=== PATIENT | female | born 1965 | race Two or more races ===

== ENCOUNTER → 2019-08-08 | Emergency (ER) | payer OTHER ==
[~2019-08-08] VITALS: Ht 170.2 cm; Wt 93.0 kg
[~2019-08-08] MED LIST: AIRBORNE EFFER1 EACH PO; INTESTINEX680 M1 PO; LEVSIN/SL0.125 MG SL; MUCINEX DM ER1 EAC1 PO; PEPCID AC20 MG PO; TESSALON PERLE100 M1 PO
== END | disposition home or self-care (01) ==
LOC: ER 01:11
DX: J06.9 Acute upper respiratory infection, unspecified (principal)

== ENCOUNTER 2023-02-05 17:30 | Emergency (ER) | payer OTHER ==
[~2023-02-05] VITALS: Ht 170.2 cm; Wt 54.0 kg
[2023-02-05] MEDS ORDERED: TOPROL XL50 M1 PO (17:38)
[2023-02-05 19:36] LABS: HEMATOCRIT 41.1 % (36.0-45.00); HEMOGLOBIN 14.1 g/dL (12.0-15.00); MEAN CELL VOLUME 88.9 fL (80.00-100.00); MEAN CORPUSCULAR HEMOGLOBIN 30.4 pg (27.00-32.0); MEAN CORPUSCULAR HGB CONC 34.3 g/dl (32.0-36.0); PLATELET COUNT 324 K/uL (150-450); RED BLOOD COUNT 4.62 M/uL (4.00-6.00); RED CELL DISTRIBUTION WIDTH 14.5 % (11.5-14.5)
[2023-02-05 19:49] LABS: PH,URINE 5.5 (5.0-8.0); URINE APPEARANCE Clear; URINE BILIRRUBIN Negative (NEGATIVE); URINE BLOOD Moderate; URINE COLOR Yellow; URINE GLUCOSE Negative (NEGATIVE); URINE LEUKOCYTE Negative; URINE NITRATE Negative; URINE PROTEIN Negative (NEGATIVE); URINE UROBILINOGEN 0.2 E.U./dl
[2023-02-05 19:50] LABS: URINE BACTERIA 274.6 uL (0.0-1933); URINE EPITHELIAL CELLS 13.5 uL (0.0-38.8); URINE RBC 49.1 uL (0.0-20.8); URINE WBC 7.5 uL (0.0-23.2)
[2023-02-05 20:05] LABS: CALCIUM 9.3 mg/dL (8.5-10.1); CREATININE SERUM 1.13 mg/dL (0.55-1.02); GFR 49.81; POTASSIUM 4.12 mEq/L (3.5-5.1)
== END 2023-02-05 21:16 | disposition home or self-care (01) ==
LOC: ER 17:30
PROVIDERS: General Practice
DX: R00.2 Palpitations (principal)

== ENCOUNTER 2023-04-18 16:47 | Emergency (ER) | payer OTHER ==
[~2023-04-18] VITALS: Ht 170.2 cm; Wt 93.0 kg
[~2023-04-18 16:47] MED LIST changes: +TOPROL XL50 M1 PO
[2023-04-18] MEDS ORDERED: OMEPRAZOLE MAGN20 MG (17:25)
[2023-04-18] MEDS ORDERED: PEPCID AC10 MG (17:26)
[2023-04-18 19:23] LABS: HEMOGLOBIN 13.6 g/dL (12.0-15.00); MEAN CELL VOLUME 88.1 fL (80.00-100.00); MEAN CORPUSCULAR HGB CONC 34.1 g/dl (32.0-36.0); PLATELET COUNT 334 K/uL (150-450); RED BLOOD COUNT 4.54 M/uL (4.00-6.00); RED CELL DISTRIBUTION WIDTH 14.1 % (11.5-14.5)
[2023-04-18 19:47] LABS: CALCIUM 9.2 mg/dL (8.5-10.1); CREATININE SERUM 0.84 mg/dL (0.55-1.02); GFR 70.14; POTASSIUM 4.05 mEq/L (3.5-5.1)
== END 2023-04-18 21:15 | disposition home or self-care (01) ==
LOC: ER 16:48
PROVIDERS: General Practice
DX: R42 Dizziness and giddiness (principal); R07.9 Chest pain, unspecified; Z88.6 Allergy status to analgesic agent